=== PATIENT | female | born 1980 | race Caucasian/White ===

== ENCOUNTER 2016-08-03 15:19 | Inpatient (IN) ==
[2016-08-03 15:55] LABS: Basophils % 0.5 % (0.0-0.8); Eosinophils # 0.1 10*3/uL (0.0-0.87); Eosinophils % 1.6 % (0.00-10.9); Hematocrit 39.7 VOL% (35.7-47.0); Hemoglobin 14.1 GM/DL (12.0-16.0); Immature Granulocytes % 0.5 %; Immature Granulocytes Absolute 0.03 #; Lymphocytes # 2.3 10*3/uL (1.4-4.0); Mean Corpuscular HGB Conc 35.5 GM/DL (32-36); Mean Corpuscular Hemoglobin 35 PG (27-34); Mean Corpuscular Volume 98.3 FL (87-102); Mean Platelet Volume 10.5 FL (9.6-12.0); Monocytes # 0.5 10*3/uL (0.11-0.8); Neutrophils # 3.6 10*3/uL (1.4-7.4); Neutrophils % 55.4 % (38.7-73.9); Platelet Count 265 T/CUMM (130-400); Red Blood Count 4.04 MC/CUMM (3.8-5.5); Red Cell Distribution Width 11.7 % (9.3-17.3); White Blood Count 6.4 T/CUMM (4-12)
[2016-08-03 16:02] LABS: Apearance,Urine CLEAR (Clear); Bilirubin,Urine Negative (Negative); Blood, Urine Negative (Negative); Glucose,Urine (UA) Negative (Negative); Hyaline Casts,Urine 1 /LPF (0-3); Ketones,Urine Negative (Negative); Mucus,Urine Occasional /LPF (Occasional); Nitrite,Urine Negative (Negative); Protein,Urine Negative; RBC,Urine <1 /HPF (0-4); Renal Epithelial Cells,Urine Occasional /HPF (<1); Squamous Epithelial Cell,Urine Occasional /HPF (0-10); Urine Color Straw (Yellow); Urine Specific Gravity 1.008 (1.001-1.035); Urine Urobilinogen < 2.0 EU/DL (0.2-1.0); WBC,Urine <1 /HPF (0-6)
[2016-08-03 16:14] LABS: Alanine Aminotransferase 40 U/L (13-56); Albumin 4.5 G/DL (3.4-5.0); Alkaline Phosphatase 73 U/L (45-117); Amylase 52 U/L (25-115); Aspartate Amino Transferase 29 U/L (0-37); Bilirubin,Total < 0.39 MG/DL (0.2-1.0); Blood Urea Nitrogen 12 MG/DL (7-18); Calcium 8.7 MG/DL (8.5-10.1); Glucose 94 MG/DL (74-106); Magnesium 2.1 MG/DL (1.8-2.4); Osmolality,Calculated 280.3 MOS/KG (273-304); Sodium 141 MMOL/L (136-145); Total Protein 7.4 G/DL (6.4-8.3)
--- NOTE | 2016-08-03 16:22 | CT Report ---
Referring physician: Jim Snyder EXAM: CT abdomen and pelvis with contrast DATE: 08/03/2016 COMPARISON: 12/19/2013 REASON: Left abdomen and back pain, abdominal distention TECHNIQUE: Axial images of the abdomen and pelvis were obtained with the use of 100 cc of Omnipaque 350 IV contrast. Coronal and sagittal reformatted images were also provided. Total DLP was 670.60 mGy*cm. FINDINGS: The visualized lower lung zones are clear. The liver is normal in size with fatty infiltration. No dilated ducts. The stable small hypodensity in the anterior right lobe of the liver which fills in with contrast. Contracted gallbladder with enhancement of the wall the gallbladder. The spleen, pancreas, adrenal glands, and kidneys are stable in appearance. No renal or ureteral calculi are identified. The abdominal aorta is normal in size with no adjacent adenopathy. No dilatation of the small bowel. Post operative findings are noted in the sigmoid colon location with no evidence of diverticulitis, free air, or free fluid. Prior hysterectomy and appendectomy. Urinary bladder is somewhat decompressed with possible minimal diffuse wall thickening. No acute osseous findings. IMPRESSION: Fatty infiltration of the liver with probable small hepatic hemangioma. Contracted gallbladder with gallbladder wall thickening. If the patient has symptoms of acute cholecystitis, fasting gallbladder ultrasound and/or biliary scan with ejection fraction may be helpful for further evaluation. Prior hysterectomy, appendectomy, and post operative findings in the sigmoid colon. Limited evaluation of the bowel without oral contrast but no definite acute findings are identified. Possible nonspecific thickening of the wall of the decompressed urinary bladder. The CT exam was performed using one or more of the following dose reduction techniques: Automated exposure control and adjustment of the mA and/or kV according to patient size. PROCEDURE INTERPRETED AT [facility] DEPARTMENT OF RADIOLOGY Final Report Signed by: Dr. Irma Reyes
--- NOTE | 2016-08-03 16:28 | XRay Report ---
XR abdomen 2V Indication: Generalized abdominal pain Comparison: Abdominal x-ray dated December 19, 2013 Technique: Frontal views of the abdomen in the supine and upright position. Findings: Nonspecific nonobstructive bowel gas pattern. No free intraperitoneal air. Residual contrast material noted within the bilateral renal collecting systems, ureters, and bladder. Visualized osseous and surrounding soft tissue structures demonstrate no acute abnormality. IMPRESSION: No acute abnormality demonstrated. PROCEDURE INTERPRETED AT [facility] DEPARTMENT OF RADIOLOGY Final Report Signed by: Dr Manuel Benson
[2016-08-03] MEDS ORDERED: HYDROmorphone 2 MG/1 ML VIAL IV STA ×2 (17:16→20:00)
[2016-08-03] MEDS ORDERED: PANTOPRAZOLE 40 MG VIAL IV STA (17:16)
[2016-08-03] MEDS ORDERED: ALUM/MAG/SIMETH/LIDO VISC 1:1 30 ML BOTTLE PO STA (17:16)
[2016-08-03] MEDS ORDERED: SODIUM CHLORIDE 0.9% 500 ML IV STA (17:16)
[2016-08-03] MEDS ORDERED: ONDANSETRON 4 MG/2 ML VIAL IV STA (17:16)
[2016-08-03] MEDS ORDERED: SIMETHICONE CHEW 80 MG TABLET PO STA (17:16)
[2016-08-03] MEDS ORDERED: PANTOPRAZOLE 40 MG VIAL IV ONE (17:39)
[2016-08-03] MEDS ORDERED: SIMETHICONE CHEW 80 MG TABLET PO ONE (17:39)
[2016-08-03] MEDS ORDERED: ONDANSETRON 4 MG/2 ML VIAL ONE (17:39)
[2016-08-03] MEDS ORDERED: HYDROmorphone 2 MG/1 ML VIAL ONE ×2 (17:39→19:53)
[2016-08-03] MEDS ORDERED: ALUM/MAG/SIMETH/LIDO VISC 1:1 30 ML BOTTLE PO ONE (17:39)
--- NOTE | 2016-08-03 19:14 | Emergency Department Note ---
René Solorzano Mantricia, am scribing for, and in the presence of, Epifanio Mckeon MD 17:19. Mike Solorzano Charles R, MD, personally performed the services described in this documentation, ascribed by Lizette Merritt in my presence, and it is both accurate and complete [id number] . Arrival - Arrival Chief Complaint: Abdominal / Flank Pain Stated Complaint: STOMACH PAIN ED Nursing Triage Note: Pt c/o left sided abd pain and lower back pain x 2 wks. Pt was seen by Dr Díaz yesterday. Mode of Arrival: Ambulatory Limitations: No Limitations Source: Patient Time Seen by Provider: 08/03/16 16:57 - History of Present Illness HPI Narrative: Pt is a 36 y/o white female arriving to ED with c/o left-sided abdominal pain and lower back pain that onset 2 weeks ago. She reports that she was seen yesterday by Dr. Díaz for the same symptoms and was given Amitiza. She reports that she has taken one tablet of Amitiza today. She states that she feels bloated and fells like "her food is not moving." Pt also reports constipation and nausea. Pt has a PMHx of endometriosis. She reports no other complaints to ED. Onset (ago): week(s) Consistency: constant Date of Last Menstrual Period: HYST Allergies/Adverse Reactions: Allergies Allergy/AdvReac Type Severity Reaction Status Date / Time No Known Allergies Allergy Verified 08/03/16 15:40 Home Medications: Home Medications Medication Instructions Recorded Confirmed Type Clorazepate [Tranxene] 3.75 mg PO BID 08/03/16 08/03/16 History Dicyclomine Cap/Tab [Bentyl 10 mg PO DAILY PRN 08/03/16 08/03/16 History Cap/Tab] Linaclotide [Linzess] 145 mcg PO DAILY PRN 08/03/16 08/03/16 History Zolpidem [Ambien] 5 mg PO BEDTIME 08/03/16 08/03/16 History Review of System - Review of System 12 point system: reviewed and no additional remarkable complaints except as stated - Review of System Constitutional: Absent: chills, diaphoresis Gastrointestinal: Present: abdominal pain, nausea. Absent: vomiting, diarrhea Musculoskeletal: Present: lower back pain. Absent: back pain, leg pain, neck pain Medical,Surgical,& Family Hx - Medical History Gastrointestinal: History of: GI Problems (IBS) Reproductive: History of: Endometriosis, Ovarian Cysts - Surgical History Abdominal Surgeries: Surgical HX of: Abdominal Surgery (colon) Reproductive Surgeries: Surgical HX of;: Hysterectomy - Social History Smoking Status: Current every day smoker Exam Vital Signs: Vital Signs Temperature 98.3 F 08/03/16 15:31 Pulse Rate 86 08/03/16 15:31 Respiratory Rate 16 08/03/16 15:31 Blood Pressure 145/102 08/03/16 15:31 O2 Sat by Pulse Oximetry 100 08/03/16 15:31 - General General appearance: alert, in no apparent distress - Head Head exam: Present: atraumatic, normocephalic, normal inspection - Eye Eye exam: Present: normal appearance, PERRL, EOMI - ENT ENT exam: Present: normal exam, normal oropharynx, mucous membranes moist, TM's normal bilaterally, normal external ear exam - Neck Neck exam: Present: normal inspection, full ROM, trachea midline. Absent: tenderness - Chest Chest inspection: Present: normal inspection, symmetric chest wall rise. Absent : tenderness - Respiratory Respiratory exam: Present: normal lung sounds bilaterally - Cardiovascular Cardiovascular exam: Present: normal rhythm, tachycardia, normal heart sounds - Abdominal Exam Abdominal exam: Present: soft, tenderness (epigastric and RUQ), hyperactive bowel sounds. Absent: distention, guarding, rebound - Extremities Exam Extremities exam: Present: normal inspection, full ROM, normal capillary refill. Absent: tenderness, pedal edema - Back Exam Back exam: Present: normal inspection, full ROM. Absent: tenderness - Neurological Exam Neurological exam: Present: alert, oriented X3, CN II-XII intact, normal gait, reflexes normal - Psychiatric Psychiatric exam: Present: normal affect, normal mood - Skin Skin exam: Present: warm, dry, intact, normal color Course - Consultations Consultation #1: Dr. Borja will admit patient observation Time: 19:12 Results - Labs CBC & BMP: 08/03/16 15:36 08/03/16 15:36 Lab Results: I have reviewed the patients labs Labs: Laboratory Tests 08/03/16 08/03/16 15:36 15:36 MCH 35 H Urine Urobilinogen < 2.0 H - Diagnostic Findings Procedure: Abdominal x-ray: report reviewed by me (No acute abnormality demonstrated.), CT Abdomen and Pelvis: report reviewed by me (Fatty infiltration of the liver with probable small hepatic hemangioma. Contracted gallbladder with gallbladder wall thickening. If the patient has symptoms of acute cholecystitis, fasting gallbladder ultrasound and/or biliary scan with ejection fraction may be helpful for further evaluation. Prior hysterectomy, appendectomy, and post operative findings in the sigmoid colon. Limited evaluation of the bowel without oral contrast but no definite acute findings are identified. Possible nonspecific thickening of the wall of the decompressed urinary bladder.) Disposition Clinical Impression: Abdominal pain, Biliary colic, Obstipation Case discussed with: patient, patient's family Disposition: Still a Patient Condition: Stable Time of Disposition: 19:14
--- NOTE | 2016-08-03 19:31 | Ultrasound Report ---
Exam: US gallbladder Date: 08/03/2016 5:08 PM Comparison: 07/28/2007 Indication: Right upper quadrant pain Technique:[Multiple transabdominal real-time scans were obtained of the right upper quadrant. Color-flow scans were obtained. Ultrasound images were captured and stored.] Findings: No definite gallstones are identified. The wall of the gallbladder measures 3.6 mm. Gallbladder folds noted. CBD is normal in size measuring 2.3 mm. The liver is normal in size. Right kidney measures 114 mm length with no mass or hydronephrosis. The visualized pancreas and aorta have an unremarkable appearance. The aortic bifurcation and IVC are obscured by bowel gas. Color flow documented in the portal vein. Impression: No definite gallstones are identified. The wall of the gallbladder appears borderline in thickness. If the patient has symptoms of acute cholecystitis, biliary scan with ejection fraction may be helpful for further evaluation. PROCEDURE INTERPRETED AT [facility] DEPARTMENT OF RADIOLOGY Final Report Signed by: Dr. Irma Reyes
[2016-08-03] MEDS ORDERED: LINACLOTIDE 145 MCG CAPSULE PO PRN (21:15)
[2016-08-03] MEDS ORDERED: DICYCLOMINE 10 MG CAPSULE PO PRN (21:15)
[2016-08-03] MEDS ORDERED: ACETAMINOPHEN 325 MG TABLET PO PRN (21:15)
[2016-08-03] MEDS: SODIUM CHLORIDE 0.9% 1,000 ML IV SCH (21:38)
[2016-08-03] MEDS: ZALEPLON 5 MG CAPSULE PO SCH (21:46)
[2016-08-03] MEDS: ONDANSETRON 4 MG/2 ML VIAL IV PRN (21:46)
[2016-08-03] MEDS: CLORAZEPATE 3.75 MG TABLET PO SCH (21:46)
[2016-08-04] MEDS: HYDROmorphone 2 MG/1 ML VIAL IV PRN ×5 (01:25→21:27)
[2016-08-04] MEDS: ONDANSETRON 4 MG/2 ML VIAL IV PRN ×3 (05:26→21:27)
[2016-08-04] MEDS: SODIUM CHLORIDE 0.9% 1,000 ML IV SCH ×2 (05:40→12:15)
[2016-08-04 05:51] LABS: Basophils % 0.5 % (0.0-0.8); Eosinophils # 0.1 10*3/uL (0.0-0.87); Eosinophils % 1.9 % (0.00-10.9); Hematocrit 35.1 VOL% (35.7-47.0); Hemoglobin 12.2 GM/DL (12.0-16.0); Immature Granulocytes % 0.3 %; Immature Granulocytes Absolute 0.02 #; Lymphocytes # 2.2 10*3/uL (1.4-4.0); Lymphocytes % 36.7 % (21.3-54.2); Mean Corpuscular HGB Conc 34.8 GM/DL (32-36); Mean Corpuscular Hemoglobin 34 PG (27-34); Mean Corpuscular Volume 98.6 FL (87-102); Mean Platelet Volume 10.5 FL (9.6-12.0); Monocytes # 0.4 10*3/uL (0.11-0.8); Monocytes % 7.4 % (1.7-12.7); Neutrophils # 3.1 10*3/uL (1.4-7.4); Neutrophils % 53.2 % (38.7-73.9); Platelet Count 231 T/CUMM (130-400); Red Blood Count 3.56 MC/CUMM (3.8-5.5); Red Cell Distribution Width 11.9 % (9.3-17.3); White Blood Count 5.9 T/CUMM (4-12)
[2016-08-04 06:18] LABS: Albumin 3.7 G/DL (3.4-5.0); Bilirubin,Total 0.5 MG/DL (0.2-1.0); Calcium 7.9 MG/DL (8.5-10.1); Magnesium 2.2 MG/DL (1.8-2.4); Potassium 4.1 MMOL/L (3.5-5.1); Total Protein 6.1 G/DL (6.4-8.3)
--- NOTE | 2016-08-04 07:12 | General Surg History&Physical ---
Assessment and Plan - Time spent with patient Time spent with patient: Greater than 30 minutes (1) Abdominal pain Status: Acute Assessment and plan: The etiology of her pain is unclear. She has a history of endometriosis and also a history of irritable bowel syndrome. She states that her chronic symptoms of changed in the last couple of weeks and has been more localized to her right upper quadrant and her seem more typical of biliary colic. We will check a HIDA scan today. Current Visit: Yes History of Present Illness Chief complaint: Abdominal pain History of present illness: Ms. Mena is a 36 year old female With worsening right upper quadrant abdominal pain sometimes radiating into her back. This pain is moderate in severity. It is worse with meals and accompanied by nausea. She has a long history dating back for several years of irritable bowel syndrome and abdominal pain. She has had colon surgery by Dr. Meadows which by her report represented endometriosis. She had a colon resection for this. Since that time she has been treating with irritable bowel syndrome. She has not had jaundice. She had an ultrasound that was essentially negative. She had a CT scan that was essentially negative. Home Medications Medication Instructions Recorded Confirmed Type Clorazepate [Tranxene] 3.75 mg PO BID 08/03/16 08/03/16 History Dicyclomine Cap/Tab [Bentyl 10 mg PO DAILY PRN 08/03/16 08/03/16 History Cap/Tab] Linaclotide [Linzess] 145 mcg PO DAILY PRN 08/03/16 08/03/16 History Zolpidem [Ambien] 5 mg PO BEDTIME 08/03/16 08/03/16 History Allergies Allergy/AdvReac Type Severity Reaction Status Date / Time No Known Allergies Allergy Verified 08/03/16 15:40 Medical,Surgical,& Family Hx - Medical History Psychological: History of: Anxiety Disorders Gastrointestinal: History of: GI Problems (IBS) Reproductive: History of: Endometriosis, Ovarian Cysts - Surgical History Abdominal Surgeries: Surgical HX of: Abdominal Surgery (colon) Reproductive Surgeries: Surgical HX of;: Hysterectomy - Family History Family History: Reports;: Family Diabetes (father), Family Heart Disease (father , paternal grandmother) - Social History Smoking Status: Current every day smoker Frequency of Alcohol Use: Rarely Exam - Constitutional Vitals: Period Temp Pulse Resp BP Sys/Ramachandran Pulse Ox Last 24 Hr 97.4 F-98.3 F 76-86 16-18 136-145/68-102 97-100 General appearance: no acute distress - Head Head exam: Present: normocephalic - Eye Eye exam: Absent: scleral icterus - ENT Mouth exam: Present: normal voice - Neck Neck exam: Present: trachea midline. Absent: tenderness - Respiratory Respiratory exam: Present: clear to auscultation bilaterally. Absent: accessory muscle use - Cardiovascular Cardiovascular exam: Present: RRR - GI/Abdominal GI/Abdominal exam: Present: soft. Absent: distended, guarding, mass, Morrison's sign, tenderness, rebound - Neurological Exam Neurological exam: Present: alert, oriented X3. Absent: motor sensory deficit Speech: Present: normal - Skin Skin exam: Present: normal color - Constitutional Constitutional: Present: fever(s). Absent: chills, weight loss - Cardiovascular Cardiovascular: Absent: chest pain at rest, chest pain with activity, dyspnea, dyspnea on exertion, syncope - Respiratory Respiratory: Absent: dyspnea, hemoptysis, dyspnea on exertion - Gastrointestinal Gastrointestinal: Present: abdominal pain, bloating, change in bowel habits, constipation, cramping, diarrhea, nausea. Absent: hematemesis, hematochezia, vomiting, jaundice - Genitourinary Genitourinary: Absent: hematuria - Musculoskeletal Musculoskeletal: Present: back pain - Neurological Neurological: Absent: focal weakness, syncope - Endocrine Endocrine: Absent: polyuria Hematologic/Lymphatic: Absent: easy bleeding, easy bruising Results - Labs CBC & BMP: 08/04/16 05:40 08/04/16 05:40 Lab Results: I have reviewed the past 24 hour labs - Diagnostic Findings Procedure: CT Abdomen and Pelvis: report reviewed by me, Ultrasound: report reviewed by me
--- NOTE | 2016-08-04 10:37 | Nuclear Medicine Report ---
Exam: NM hepatobiliary Date: 08/04/2016 4:00 AM Indication: Right upper quadrant abdominal pain and biliary colic Comparison: Gallbladder sonogram 08/03/2016 CT scan same date Findings: The patient was given 5 mCi of technetium 99M Choletec. Images were obtained for 80 minutes. 8 ounces of ensure were administered. The gallbladder is demonstrated. There is faint washout from the liver into the small intestine. The ejection fraction is measured at 44-61% at 20 minutes to 60 minutes. Impression: 1. No evidence of common bile duct or cystic duct obstruction. 2. Normal ejection fraction however the patient did experience some nausea and cramping with ensure PROCEDURE INTERPRETED AT [facility] DEPARTMENT OF RADIOLOGY Final Report Signed by: Dr. Taz Medrano
[2016-08-04] MEDS: CLORAZEPATE 3.75 MG TABLET PO SCH ×2 (10:43→20:48)
[2016-08-04] MEDS: PANTOPRAZOLE 40 MG VIAL IV SCH (10:43)
--- NOTE | 2016-08-04 15:08 | Gastrointestinal Consult Note ---
Assessment and Plan (1) Abdominal pain Status: Acute Assessment and plan: 08/04-2 week history of generalized abdominal pain with prior history of hysterectomy/colectomy due to endometriosis. Reported history of IBS with no relief from Linzess, Bentyl, Amitza. HIDA scan, CT of abdomen, and gallbladder ultrasound findings noted below. Lab work unremarkable. Obtain endoscopy records from [place]. Further plan an addendum to follow by Dr. Strong. Current Visit: Yes History of Present Illness Chief complaint: Abdominal pain History of present illness: Ms. Mena is a 36 year old female who was admitted to the hospital with 2 week history of generalized abdominal pain. Patient states she has a long- standing history of irritable bowel syndrome and takes Linzess and Bentyl as needed for her symptoms. She states that over the past couple weeks she had had an increase in abdominal pain and discomfort that initially started in her right upper quadrant however she states radiates across her abdomen and down to the lower quadrants. She states over the last several days she has had the urge to have a bowel movement however she would have nothing but a very small caliber stool if even that. She states this was a variation from her normal bowel pattern. She went to see Dr. Díaz for this and was given Amitza which she states caused her to have some watery stools. The pain continued and she was told to come to the ER for further evaluation. Patient has a history of endometriosis in which 2 years ago she was seen by Dr. Meadows and had a hysterectomy and had 6 inches of her colon removed due to this which sounds like possibly descending/sigmoid colon according to her description. She states she has had 3-4 revision surgeries due to tissue being left behind from her original hysterectomy as well. Most of these surgeries appear to have been laparoscopic. She states the pain she is having feel similar to what she had prior to her hysterectomy/colectomy. On admission her gallbladder ultrasound showed no gallstones, borderline thickness of the gallbladder, with a normal HIDA scan. CT of abdomen/pelvis with IV contrast shows fatty infiltration of the liver with small hepatic hemangioma/contracted gallbladder wall with thickening/postoperative findings in the sigmoid colon/no acute bowel findings. She denies any recent weight loss, fever, chills. She does state she has had some nausea episodes and when she was eating on yesterday she felt like the food would not go down which worsened her abdominal pain. She has had endoscopy done at [place] prior to her surgery 2 years ago. Lab work is essentially unremarkable at this time. Home Medications Medication Instructions Recorded Confirmed Type Clorazepate [Tranxene] 3.75 mg PO BID 08/03/16 08/03/16 History Dicyclomine Cap/Tab [Bentyl 10 mg PO DAILY PRN 08/03/16 08/03/16 History Cap/Tab] Linaclotide [Linzess] 145 mcg PO DAILY PRN 08/03/16 08/03/16 History Zolpidem [Ambien] 5 mg PO BEDTIME 08/03/16 08/03/16 History Allergies Allergy/AdvReac Type Severity Reaction Status Date / Time No Known Allergies Allergy Verified 08/03/16 15:40 Medical,Surgical,& Family Hx - Medical History Psychological: History of: Anxiety Disorders Gastrointestinal: History of: GI Problems (IBS) Reproductive: History of: Endometriosis, Ovarian Cysts - Surgical History Abdominal Surgeries: Surgical HX of: Abdominal Surgery (colon) Reproductive Surgeries: Surgical HX of;: Hysterectomy - Family History Family History: Reports;: Family Diabetes (father), Family Heart Disease (father , paternal grandmother) - Social History Smoking Status: Current every day smoker Frequency of Alcohol Use: Rarely 12 point system: reviewed and no additional remarkable complaints except as stated - Constitutional Constitutional: Present: as per HPI - EENT Eyes: Present: as per HPI Ears: Present: as per HPI Nose, mouth and throat: Present: as per HPI - Cardiovascular Cardiovascular: Present: as per HPI - Respiratory Respiratory: Present: as per HPI - Gastrointestinal Gastrointestinal: Present: as per HPI, abdominal pain, nausea - Genitourinary Genitourinary: Present: as per HPI - Musculoskeletal Musculoskeletal: Present: as per HPI - Neurological Neurological: Present: as per HPI - Psychiatric Psychiatric: Present: as per HPI - Endocrine Endocrine: Present: as per HPI - Hematologic/Lymphatic Hematologic/Lymphatic: Present: as per HPI Exam - Constitutional Vitals: Period Temp Pulse Resp BP Sys/Ramachandran Pulse Ox Last 24 Hr 97.4 F-98.3 F 66-86 16-18 95-145/68-102 97-100 General appearance: normal weight, no acute distress - Head Head exam: Present: normal inspection, normocephalic - Eye Eye exam: Present: other (Lids and conjunctivae unremarkable). Absent: scleral icterus - ENT ENT exam: Present: normal exam, normal oropharynx - Neck Neck exam: Present: normal inspection - Respiratory Respiratory exam: Present: clear to auscultation bilaterally. Absent: rales, rhonchi, wheezes - Cardiovascular Cardiovascular exam: Present: regular rate and rhythm. Absent: diastolic murmur , JVD, systolic murmur - GI/Abdominal GI/Abdominal exam: Present: normal bowel sounds, soft. Absent: ascites, distended, mass, organomegaly, tenderness - Extremities Exam Extremities exam: Present: normal inspection, full ROM - Back Exam Back exam: Present: normal inspection - Neurological Exam Neurological exam: Present: alert, oriented X3 - Psychiatric Psychiatric exam: Present: normal affect, normal mood - Skin Skin exam: Present: normal color, warm, dry Results - Labs CBC & BMP: 08/04/16 05:40 08/04/16 05:40 Lab Results: I have reviewed the past 24 hour labs - Diagnostic Findings Procedure: CT Abdomen and Pelvis: report reviewed by me, Ultrasound: report reviewed by me
--- NOTE | 2016-08-04 15:45 | XRay Report ---
Exam: XR abdomen 2V Date: 08/04/2016 4:00 AM Comparison: 08/03/2016 Indication: Generalized abdominal pain Technique:[Supine and erect abdomen] Findings: Nonobstructed bowel gas pattern with increased fecal material in colon. Postoperative findings in the pelvis. No acute osseous findings. Impression: Nonobstructed bowel gas pattern. Increased fecal material consistent with constipation. PROCEDURE INTERPRETED AT [facility] DEPARTMENT OF RADIOLOGY Final Report Signed by: Dr. Irma Reyes
[2016-08-04] MEDS ORDERED: POLYETHYLENE GLYCOL POWDER 255 GM BOTTLE PO ONE (20:00)
[2016-08-04] MEDS: ZALEPLON 5 MG CAPSULE PO SCH (20:48)
[2016-08-05] MEDS: SODIUM CHLORIDE 0.9% 1,000 ML IV SCH ×3 (01:30→13:01)
[2016-08-05] MEDS: HYDROmorphone 2 MG/1 ML VIAL IV PRN (02:03)
[2016-08-05] MEDS: CLORAZEPATE 3.75 MG TABLET PO SCH (08:09)
[2016-08-05] MEDS: PANTOPRAZOLE 40 MG VIAL IV SCH (08:25)
[2016-08-05] MEDS ORDERED: LIDOCAINE 1% 5 ML VIAL ONE (12:29)
[2016-08-05] MEDS ORDERED: PROPOFOL 200 MG/20 ML VIAL IV ONE (12:29)
--- NOTE | 2016-08-05 14:18 | History and Physical Update ---
History and Physical Update - History and Physical H&P was reviewed, the patient examined and there: are no changes in the patients condition since last H&P was completed. - Physical Exam Mental Status: alert and oriented Heart: regular rate and rhythm Lung: clear to auscultation Abdomen: within normal limits Vitals: within normal limits
--- NOTE | 2016-08-05 14:32 | Operative Note ---
Date of procedure: 08/05/16 Pre-op diagnosis: Dysphagia Procedure: Procedure: Esophagogastroduodenoscopy with bougie dilation esophagus Brief clinical abstract: 36-year-old female is admitted after an episode of dysphagia eating hamburger yesterday. She also has had recent increased constipation with lower abdominal pain. She feels better from the standpoint of her abdominal pain today after laxatives overnight. She denies typical heartburn or indigestion symptoms. Indication for procedure: Dysphagia Endoscopic findings:[After informed consent was obtained, the patient was placed in the left lateral decubitus position. The gastroscope was inserted in the upper esophagus under direct vision with no resistance encountered. Esophageal mucosa appeared normal down to the squamocolumnar junction. There was a mildly obstructive fibrous appearing stricture at that level consistent with reflux etiology. No erosions or ulcerations were seen. The endoscope was advanced in the stomach which was carefully examined including retroflexed view of the cardia and fundus with no abnormalities noted. The pyloric channel, duodenal bulb, second and third portion of the duodenum were normal. The endoscope was withdrawn and Frey dilator size 54 [place] inserted in the upper esophagus and advanced beyond the level of the GE junction with mild resistance encountered. No blood was noted on the dilator afterwards and she no chest pain. She appeared to tolerate the procedure well. Impression: Distal esophageal stricture-consistent with reflux etiology; status post bougie dilation Recommendations: Soft diet this afternoon. If tolerates and continues to feel well could probably discharge home. Told her to continue to take her Linzess on a more regular schedule rather than "as needed" as she had been doing. Anesthesia: MAC Surgeon / Physician: Taz Strong Estimated blood loss: none Specimens: none sent Condition: stable Disposition: post procedure unit Results - Labs CBC & BMP: 08/04/16 05:40 08/04/16 05:40 Discharge Plan - Discharge Medications No Action Linaclotide [Linzess] 145 mcg PO DAILY PRN PRN Reason: Constipation Dicyclomine Cap/Tab [Bentyl Cap/Tab] 10 mg PO DAILY PRN PRN Reason: Abdominal Pain Zolpidem [Ambien] 5 mg PO BEDTIME Clorazepate [Tranxene] 3.75 mg PO BID - Follow Up or Referral - Forms/Instructions
--- NOTE | 2016-08-05 14:42 | Anesthesia Post-Op ---
Anesthesia Post OP - Post Ansesthetic Evaluation Patient seen in post op: Yes Resp: within normal limits CV: within normal limits Mental: within normal limits Temp: within normal limits [id number]: within normal limits Nausea and Vomiting: within normal limits Pain: within normal limits
--- NOTE | 2016-08-05 16:01 | Discharge Summary ---
Hospital Course - Hospital Course Hospital Course: Ms. Mena is a 36-year-old white female admitted by Dr. Huong AUSTIN on 2016 with right upper quadrant abdominal pain that radiates to the back. She does have a history of endometriosis with bowel resection due to that and also a history of irritable bowel syndrome that she takes Linzess. CT of the abdomen and pelvis showed a contracted gallbladder with wall thickening and a fatty liver with hepatic hemangioma. Her HIDA scan was negative. Dr. Strong from GI was consulted and he performed an EGD on 08/05/2016 where he performed a distal esophageal bougie dilation. Patient did have an esophageal stricture consistent with reflux etiology. Patient tolerated her diet and is ready for discharge home. Dr. Strong instructed her to continue her Linzess on a more regular than as-needed basis. Patient will follow up with Dr. Huong AUSTIN in 2- 3 weeks. Complete discharge instructions were given to the patient and her in the room. Patient's case was discussed with Dr. uHong AUSTIN, Dr. Strong, patient and nursing staff. Care coordination, chart review, and completed discharge paperwork took approximately 35 minutes. - Time spent with patient Time with patient DS: Greater than 30 minutes Diagnosis - Discharge Diagnosis (1) Esophageal stricture Status: Resolved (2) Abdominal pain Status: Resolved (3) Obstipation Status: Resolved Discharge Plan - Discharge Data Disposition: Disch To Home/Self Care Condition at Discharge: Stable Discharge Diet: advance to your usual diet Activity: resume usual activities as tolerated Driving: no restrictions Contact your physician if you experience:: fever over 101, Nausea/Vomiting - Discharge Medications Continue Linaclotide [Linzess] 145 mcg PO DAILY PRN PRN Reason: Constipation Dicyclomine Cap/Tab [Bentyl Cap/Tab] 10 mg PO DAILY PRN PRN Reason: Abdominal Pain Zolpidem [Ambien] 5 mg PO BEDTIME Clorazepate [Tranxene] 3.75 mg PO BID - Follow Up or Referral Follow Up: Mike Borja III., MD [Physician] - 2 Weeks Taz Strong MD [Physician] - (prn ) - Forms/Instructions Forms: Acute Care Work/School Release Exam - Constitutional Vitals: Period Temp Pulse Resp BP Sys/Ramachandran Pulse Ox Last 24 Hr 97.8 F-99.4 F 63-88 16-20 91-129/52-76 94-100 Exam: 36-year-old white female, no acute distress, alert and oriented Chest clear CV regular rate and rhythm Abdomen soft nontender Extremities no edema Discharge Results Procedures and tests throughout hospitalization: Pending Orders 08/04/16 04:00 Urinalysis 08/05/16 05:01 TSH, Sensitive, S IN AM DS: Provider Date of admission: 08/03/16 19:14 Primary care physician: . No PCP Attending physician on admission: Mike Borja III., Consults: 08/04/16 14:22 Consult to Physician [CONS] Routine Comment: abdominal pain Consulting Provider: Taz Strong Consulting Provider Notified: Yes When should Consulting Provider be notified: Now Person Notified: dr. strong saw Date Notified: 08/04/16 Consult Notification Comment: message left at 1445 on machine Discharging clinician: JAMES Yang Expected date of discharge: 08/05/16
[2016-08-05 16:05] VITALS: BP 116/80
== END 2016-08-05 16:33 | disposition home or self-care (01) | DRG 392 ==
LOC: N.ED 15:19 → N.EDINP 19:14 → N.3E 20:19
PROVIDERS: ADMIT Surgery; ATTEND Surgery